=== PATIENT | female | born 1950 | race Caucasian/White ===

== ENCOUNTER 2016-11-18 05:44 | Inpatient (IN) | payer OTHER, MEDICARE ==
[2016-11-18] VITALS (14 sets, daily range): BP systolic 125–153; BP diastolic 46–98; PULSE 66–109; RESP 14–19; O2SAT 96–99
[~2016-11-18] VITALS: Ht 167.6 cm; Wt 123.8 kg
[2016-11-18] MEDS: Lactated Ringer's 1,000 ML IV SCH ×2 (05:36→07:41)
[~2016-11-18 05:44] MED LIST: DILT180C47 PO; INDA2.5T2 PO; LEVO100T6 PO; LISI10TA PO; METF500T4 PO; METO50TA3 PO
[2016-11-18] MEDS ORDERED: CeFAZolin 2 Gm/50 mL D5W Duplex Bag IV ONE (05:48)
[2016-11-18] MEDS ORDERED: Vancomycin Inj 1,000 MG in IV Premix 1 EACH IV ONE (06:00)
[2016-11-18] MEDS ORDERED: CeFAZolin Inj 2 GM in IV Premix 1 EACH IV ONE (06:00)
[2016-11-18] MEDS ORDERED: Lactated Ringer's 500 ML IV PRN (07:14)
[2016-11-18] MEDS ORDERED: Lactated Ringer's 1,000 ML IV SCH (07:14)
[2016-11-18] MEDS ORDERED: HYDROmorphone 1 mg/mL Inj IVPUSH PRN (07:15)
[2016-11-18] MEDS ORDERED: EPHEDrine Sulfate 50 mg/mL Inj IVPUSH PRN (07:15)
[2016-11-18] MEDS ORDERED: Ondansetron 2 mg/mL 2 mL Inj IVPUSH PRN ×2 (07:15→10:15)
[2016-11-18] MEDS ORDERED: hydrALAZINE 20 mg/mL Inj IVPUSH PRN (07:15)
[2016-11-18] MEDS ORDERED: Dexamethasone 4 mg/mL Inj IVPUSH PRN (07:15)
[2016-11-18] MEDS ORDERED: Labetalol 5 mg/mL 4 mL Inj IV PRN (07:15)
[2016-11-18] MEDS ORDERED: Phenylephrine 10,000 mCg/mL Inj IVPUSH PRN (07:15)
[2016-11-18] MEDS ORDERED: MetoCLOpramide 5 mg/mL 2 mL Inj IVPUSH PRN (07:15)
--- NOTE | 2016-11-18 07:16 | PCM.HPANE ---
Patient Data Date of Service: Nov 18, 2016 Surgeon Admitting Provider: Attending Provider:Shaheed Kelley DO Primary Care Physician:Arnav Kumar MD Other Provider:Jayson Humphreys Anesthesia Reason for Visit Left Hip Arthritis Ht/WT & BMI Height (Feet): 5 Height (Inches): 5.75 Weight (Kilograms): 117.6 Body Mass Index 42.00 Allergies Coded Allergies: No Known Allergies (Unverified , 11/11/16) Past Anesthesia History Anesthesia History: Denies:: Abnormal Airway, Anesthesia Reactions, Difficult Intubation, Fam Anesthesia Reaction, Fam Malignant Hypertherm, Malignant Hyperthermia Diabetes History Hx Diabetes?: No Glycemic Control: Oral Medication Current Bedside Blood Glucose: 102 MRSA MRSA: No Medications Hypertension Medication: Yes Home Meds Incl Beta Jc: Yes (Metoprolol 50mg) Date Beta Jc Taken: Nov 18, 2016 Time Beta Jc Taken: 0600 Reported Medications Metoprolol Tartrate 50 Mg [id number] Mg PO BID 30 Days Ref 0 11/11/16 Metformin 500 Mg [id number] Mg PO DAILY Ref 0 11/11/16 Lisinopril 10 Mg [id number] Mg PO DAILY 30 Days Ref 0 11/11/16 Levothyroxine 100 Mcg [id number] Mcg PO DAILY For Thyroid Replacement Ref 0 11/11/16 Indapamide 2.5 Mg Tablet2.5 Mg PO DAILY #30 TABLET 11/11/16 Diltiazem ER (Dilt XR)180 Mg Cap.er.djv411 Mg PO BID Ref 0 11/11/16 History History of ENT Problems?: No HEENT History: Denies:: Abnormal Airway Cataracts Difficult Intubation Dysphagia Glaucoma Hearing Problem Sinus Problem TMJ Denture Type: None Teeth Condition: Within Normal Limits Hx of Heart Problems?: No Cardiovascular History: Positive for:: Hypertension Denies:: AICD Abdominal Aortic Aneurism Atrial Fibrillation Cardiac Surgery Chest Pain Congestive Heart Failure Coronary Artery Disease Edema Heart Murmur Irregular Heartbeat Pacemaker Peripheral Vascular Hx of Respiratory Problem?: Yes Respiratory History: Positive for:: Pneumonia (single episode of following surgery) Denies:: Asthma COPD Emphysema Oxygen Administration Tuberculosis Use of C-PAP Machine Use of Inhalers / NEBS Hx Neurologic Problems?: No Neurological History: Denies:: Alzheimer's Disease CVA Dementia Dizziness Headaches Multiple Sclerosis Parkinson's Disease Seizures TIA Hx of GI Problems?: Yes Hx of Problems?: Yes Genitourinary History: Denies:: Kidney Stones Urinary Tract Infection Female Hx: Denies:: Currently Problems with Breasts? Skin History: Denies:: History Skin Disorders? Pressure Ulcers Hx Musculoskeletal Problems?: Yes Musculoskeletal History: Positive for:: Musculoskeletal Trauma (left hip current admission ) Osteoarthritis Denies:: Fibromyalgia Joint Replacement Myasthenia Gravis Systemic Lupus Hx of Psycho/Social Problems?: No Psycho Social History: Denies:: Anxiety Hx Depression Hx Surgeries?: Yes (hysterectomy, bud, appe, c section) Hx Any Other Health Problems?: Yes Other History: Positive for:: Cancer (cervical (hysterectomy)) Thyroid Disease History Blood Transfusions: Positive for:: Accept Blood Products? Denies:: Blood Transfusions Hx Diabetes: NoBedside Blood Glucose: 102 Hx Alcohol Use: NoHx Substance Use: NoHave You Smoked inLast 12 mo: No Stop/Bang S-Snoring: Do You Snore Loudly: No T-Tired: feel tired, fatigued: No O-Obsered: Observed not breath: No P-Blood Pressure: treated: Yes B- Body Mass Index > 35 kg/m2: Yes A- Age over 50: Yes N- Neck Large Circumference: Yes G- Gender Male: No GABRIELLA Total Score: 4 GABRIELLA Risk Assessment: High Risk, =/>3 Yes GABRIELLA Category 2: Yes Risk Assessment Category Category 1A: Patient has history of documented sleep apnea, and HAS NOT received any narcotic, sedative or anesthesia administration during this stay. Category 1B: Patient has history of documented sleep apnea, and HAS received any narcotic , sedative or anesthesia administration during this stay Category 2: Patient has SUSPECTED Obstructive Sleep Apnea, and HAS received any narcotic , sedative or anesthesia administration during this stay. Category 3: Patient has SUSPECTED Obstructive Sleep Apnea and HAS NOT received narcotic, sedative or anesthesia administration during this stay. Category 4: Outpatient in Procedural Areas with known sleep apnea or who screen positive for High Risk via the STOP/BANG questionnaire. Exam Exam Vital Signs Vital Signs Date Time Temp Pulse Resp B/P Pulse Ox O2 Delivery O2 Flow Rate FiO2 11/18/16 06:20 36.6 66 18 143/78 98 Room Air General Appearance: Alert, Oriented X3, Cooperative, No Acute Distress HEENT/AIRWAY: MP 2 Lungs: Clear to Auscultation, Normal Air Movement Heart: Exam Unremarkable, Regular Rate/Rhythm, No Murmurs/Rubs/Gallops Meds/Labs/Diagnostics Admission Meds Current Medications Lactated Ringer's 1,000 ml @ 120 mls/hr Q8H20M IV Last administered on 05:36; Start 11/18/16 at 05:00; Stop 11/18/16 at 13:19 Vancomycin/0.9 % Sod Chloride/ Premix (Vancomycin Inj/ IV Premix) 200 ml @ 100 mls/hr PREOP ONCE IV Last administered on 11/18/16 06:15; Start 11/18/16 at 06:00; Stop 11/18/16 at 07:59 Bedside Blood Glucose: 102 Plan Impression Patient chart reviewed, patient interviewed and anesthestic plan with risks, benefits, and alternatives discussed, and informed consent obtained. NPO per Anesth. Guidelines: Yes ASA Physical Status: ASA2 Mod Systemic Disease Anesthetic Plan: SAB Bene/Risks/Altern/Consents: Yes HP Complete Prior to Induction: Yes Tre Beckham MD Nov 18, 2016 07:16
[2016-11-18] MEDS ORDERED: Bupivacaine Liposome 1.3% 20 mL Inj ONE (07:23)
[2016-11-18] MEDS ORDERED: Bupivacaine-MPF 0.5% W/EPI 30 mL Inj INFILTRATE ONE (08:00)
[2016-11-18] MEDS ORDERED: 0.9% Sodium Chloride 10 mL Inj INFILTRATE ONE (08:00)
[2016-11-18] MEDS ORDERED: Bupivacaine Liposome 1.3% 20 mL Inj INFILTRATE ONE (08:00)
[2016-11-18] MEDS ORDERED: Polyethylene Glycol (PEG) 17 Gm Powder PO PRN (10:15)
[2016-11-18] MEDS ORDERED: Magnesium Hydroxide 10 mL Oral Concentration PO PRN (10:15)
[2016-11-18] MEDS ORDERED: diphenhydrAMINE 25 mg Capsule PO PRN (10:15)
[2016-11-18] MEDS: fentaNYL-PF 50 mCg/mL 2 mL Inj IVPUSH PRN ×2 (10:50→10:59)
--- NOTE | 2016-11-18 11:15 | OP ---
[address] [address] OPERATIVE REPORT PATIENT: AMERICA DACOSTA : 1950 MR#: [id number] ADMIT: 11/18/2016 JOB ID: [id number] DATE OF SURGERY: 11/18/2016 PREOPERATIVE DIAGNOSIS(ES): Left hip degenerative joint disease. POSTOPERATIVE DIAGNOSIS(ES): Left hip degenerative joint disease. PROCEDURE: Left total hip arthroplasty. SURGEON: Shaheed Kelley DO CIGARETTE MACHINE OPERATOR: Dawson Broussard PA-C INDICATIONS: The patient is a 66-year-old female with left hip severe degenerative arthritis, which has progressed to the point were she was having a very difficult time ambulating even short distances and was having to use a wheelchair. She wished to proceed with a left total hip arthroplasty. We discussed risks, benefits, and possible complications of surgery including, but not limited to injury to nerves and vessels, infection, bleeding, incomplete relief of symptoms, stiffness, need for additional procedures. We also discussed the risk of perioperative complications being higher given her increased weight. She initially did loose weight down to her goal weight, but then due to inactivity and pain she states that she increased her weight and understood that she was accepting increased risk, but felt that she needed to proceed with a total hip arthroplasty or become bedridden. library circulation assistant was required for the successful completion of the procedure. PROCEDURE IN DETAIL: The patient was brought to the operating room. She was given a preoperative antibiotic and spinal anesthetic. Placed comfortably into the lateral decubitus position. The left hip was sterilely prepped and draped. An incision was made centered over the trochanter in line with the femur. Dissection was carefully carried through subcutaneous tissue. Electrocautery was used for hemostasis. A split was then made in the iliotibial band in line with the skin incision and the Charnley retractor was then placed. A split was then made in the gluteus medius between the junction of the anterior 1/3 and posterior 2/3, and an anterior sleeve of tissue was released off of the trochanter leaving a cuff tissue for repair. A small triangular portion of capsule was then removed and the hip was then dislocated. A provisional neck cut was made about a fingerbreadth above the level of lesser trochanter and the femoral head was removed. The femur was then prepared beginning with a box osteotome. This was broached sequentially up to a size 6, which had excellent fit and fill. Next, the acetabulum was addressed and anterior and posterior acetabular retractors were placed. The pulvinar and labrum were removed. She had calcified labrum and the hip was then reamed sequentially up to a 51 for a 52 cup. The 52 cup was inserted without difficulty. Care was taken to ensure the appropriate abduction and anteversion and secured with a single superior dome screw, which had excellent purchase. I elected to place a 32 neutral liner at this point, as the patient had very little offset on her preoperative film, and I was concerned about causing excessive offset with a high offset liner. We then went back to the femur and did trials, ultimately deciding on a 32 + 9 head in order to give equal leg lengths and excellent range of motion and stability. Some posterior osteophytes were removed with the osteotome and rongeur and the size 6 Tri-Lock stem was then impacted into position with a 32 + 9 head. The hip was located had excellent range of motion and great stability. The wound was then irrigated and a mixture of 20 mg Exparel, 20 mg saline, and 20 mg Marcaine was added around the capsule and to the deep structures. The capsule was repaired with #5 Ethibond and the gluteus medius was repaired with #1 Surgilon. Some additional local was used. The vastus lateralis was then repaired with #1 suture and the iliotibial band was repaired with a running #1 and 0-Vicryl sutures. A deep fatty layer was closed with 2-0 Vicryl and then the subcu was closed with 2-0. The skin was closed with a running 3-0 V-Loc suture and Steri-Strips and a sterile dressing with silver dressing were applied. Patient tolerated the procedure well. BLOOD LOSS: 200 cc. Also 1 g TXA was used preoperatively as well as at closure. POSTOPERATIVE PROTOCOL: Have the patient weightbear to tolerance. Use walker for ambulation. Use anterolateral hip precautions. Will plan to use Lovenox for DVT prophylaxis for 21 days postoperatively and [place] 5/325 for pain.
[2016-11-18] MEDS: HYDROcodone-APAP 5-325 mg Tablet PO PRN ×2 (11:35→22:33)
[2016-11-18] MEDS: hydrOXYzine Pamoate 25 mg Capsule PO PRN ×2 (11:35→22:33)
[2016-11-18] MEDS: Ketorolac 15 mg/mL Inj IVPUSH PRN ×2 (11:40→20:11)
--- NOTE | 2016-11-18 12:21 | DRSVH ---
PROCEDURE: X-RAY PELVIS W/LAT HIP (LT) ([id number]) INDICATIONS: post op TECHNIQUE: AP pelvis with lateral view(s) of the left hip(s). COMPARISON: [facility], CR, XR PELVIS W LATERAL HIP LT, 09/21/2015, 11:21. [facility], CR, XR PELVIS W LATERAL HIP LT, 06/26/2016, 9:42. FINDINGS: Bones: Postoperative changes related to a total left hip arthroplasty are present. The metallic pros thetic components are properly seated without periprosthetic fracture evident. Advanced degenerative changes of the right hip are incidentally noted. There also are degenerative changes of the pubis s ymphysis and sacroiliac joints. Soft tissues: The visualized bowel gas pattern is normal. No suspicious soft tissue calcifications. IMPRESSION: Total left hip arthroplasty. No periprosthetic fracture is evident. Dictated by: Estuardo Pino M.D. on 11/18/2016 at 11:12 Approved by: Estuardo Pino M.D. on 11/18/2016 at 11:19
[2016-11-18] MEDS ORDERED: Ketamine 10 mg/mL 20 mL Inj ONE (12:54)
[2016-11-18] MEDS ORDERED: Bupivacaine 0.5% 50 mL Inj ONE (12:54)
[2016-11-18] MEDS ORDERED: Propofol 10,000 mCg/mL 20 mL Inj ONE (12:54)
[2016-11-18] MEDS ORDERED: Glycopyrrolate 0.2 MG/ML 1mL Inj ONE (12:54)
[2016-11-18] MEDS: HYDROmorphone 1 mg/mL Inj IVPUSH PRN ×2 (13:08→20:14)
[2016-11-18] MEDS: 0.9% Sodium Chloride 1,000 ML IV SCH ×2 (13:09→20:12)
[2016-11-18 13:12] LABS: APPEARANCE,URINE CLEAR (CLEAR,HAZY); COLOR,URINE STRAW (YELLOW); OCCULT BLOOD,URINE NEGATIVE (NEGATIVE); PH,URINE 7.5 (5.0-8.0); UROBILINOGEN,URINE NORMAL (NORMAL)
[2016-11-18] MEDS: CeFAZolin Inj 2 GM in IV Premix 1 EACH IV SCH ×2 (15:08→23:45)
--- NOTE | 2016-11-18 16:17 | NUR ---
Post op note- Received patient via bed to OSC from PACU. Awake, drowsy, and complaining of hip pain. Pain med given with relief and patient able to doze off. Continuous oximetry on. Left hip dressing dry and intact. Ortho checks stable. Stone cath. draining ralf urine. Oriented to room, call light, etc. at bedside.
[2016-11-18] MEDS: Sodium Chloride LOK Flush 10 mL Syringe IV SCH ×2 (17:06→23:50)
--- NOTE | 2016-11-18 19:56 | PCM.ANEP1 ---
Post Anesthesia PACU Phase 1 Assessment Date of Service: Nov 18, 2016 Vital Signs Vital Signs Date Time Temp Pulse Resp B/P Pulse Ox O2 Delivery O2 Flow Rate FiO2 11/18/16 16:58 36.8 84 19 144/71 98 Room Air 11/18/16 16:25 77 16 98 Room Air 11/18/16 13:00 Supplement Oxygen 11/18/16 12:28 36.4 80 18 142/83 99 Nasal Cannula 3.00 11/18/16 12:26 77 15 142/58 97 Nasal Cannula 2 11/18/16 12:00 75 16 142/77 99 Nasal Cannula 2 Anesthetic Administered: GA Level of Alertness: Awake, talking GAMBOA's with Equal Strength: No (left hip surgery) Pain: No Nausea or Vomiting: No CV Function & Hydration Stable: Yes Airway Device: Lungs: Clear to Auscultation, Normal Air Movement Dermatome Level: Full Sensation PACU Phase 2 Assessment Complications: No Follow up Care: No Patient Instructions Provided: N/A Tre Beckham MD Nov 18, 2016 19:56
[2016-11-18] MEDS: Senna-Docusate 8.6-50 mg Tablet PO SCH (22:33)
[2016-11-18] MEDS: Diltiazem CD 180 mg ER24 Capsule PO SCH (22:33)
--- NOTE | 2016-11-19 01:03 | NUR ---
Pain Pain managed with Dilauded and toradol or [place] and vistaril, pt was in recilner at start of shift and ambulated to bed. Pt also requests to dangle at bedside, otherwise wedge used to keep legs stablilzed. IV saline locked, abx infused without issue. Pt is alert and oriented, no SOB or chest pain, no numbness or tingling to L lower extremity. Care continues
[2016-11-19] MEDS: hydrOXYzine Pamoate 25 mg Capsule PO PRN ×5 (03:34→22:55)
[2016-11-19] MEDS: HYDROcodone-APAP 5-325 mg Tablet PO PRN ×5 (03:35→22:55)
[2016-11-19 05:33] VITALS: BP 139/76; PULSE 82; RESP 17; O2SAT 97
[2016-11-19 05:51] LABS: BASOPHILS % (AUTO) 0.2 % (0-3); EOSINOPHILS % (AUTO) 1.5 % (0-5); MONOCYTES % (AUTO) 13.9 % (4-12); Mean Corpuscular Hemoglobin 28.6 pg (27.0-35.0); Mean Corpuscular Volume 84.9 fL (81-100); Platelet Count 139 bil/L (150-400)
[2016-11-19] MEDS: 0.9% Sodium Chloride 1,000 ML IV SCH ×2 (06:12→16:12)
--- NOTE | 2016-11-19 08:30 | PCM.PNORTH ---
Subjective Date of Service: Nov 19, 2016 Visit Information: Reason for Visit Left Hip Arthritis Surgery/Surgery Date LEFT TOTAL HIP 11/18/16 Post-Op Day # 1 Date of Admission: Nov 18, 2016 at 12:53 Hospital Day # Subjective Patient reports she had some nausea last night when the pain was bad. This morning she is hypotensive. She is sitting up in a chair but does not feel weak or dizzy. Patient states she has difficulty getting up to the bathroom in a timely manner and would like to have the Stone kept in. Postop General: No Shortness of Breath, No Chest Pain, Good Appetite Pain Management: PO, IV Push Objective Exam Objective Patient is seen sitting up in a chair Vital Signs and I/O Vital Sign - Last Date Time Temp Pulse Resp B/P Pulse Ox O2 Delivery O2 Flow Rate FiO2 11/19/16 05:33 37.1 82 17 139/76 97 Room Air 11/18/16 12:28 3.00 Intake and Output 11/18/16 11/18/16 11/19/16 Cumulative From/Thru 15:00 23:00 07:00 11/11/16 11:58 - 11/19/16 05:33 Intake Total 1160 ml 983 ml 300 ml 2443 ml Output Total 600 ml 200 ml 950 ml 1750 ml Balance 560 ml 783 ml -650 ml 693 ml Intake Oral 636 ml 300 ml 936 ml IV Total 1160 ml 347 ml 1507 ml Output Urine Total 400 ml 200 ml 950 ml 1550 ml Estimated Blood Loss 200 ml 200 ml # Bowel Movements 0 0 Lab & Micro Results Laboratory Tests Test 11/18/16 10:54 11/19/16 05:13 Urine Color Straw (YELLOW) Urine Appearance Clear (CLEAR,HAZY) Urine pH 7.5 (5.0-8.0) Urine Specific [place] 1.010 (1.003-1.035) Urine Protein Negativemg/dL (NEG,TRACE) Urine Glucose (UA) Negativemg/dL (NEGATIVE) Urine Ketones Negativemg/dL (NEGATIVE) Urine Occult Blood Negative (NEGATIVE) Urine Nitrite Negative (NEGATIVE) Urine Bilirubin Negative (NEGATIVE) Urine Urobilinogen Normalmg/dL (NORMAL) Urine Leukocyte Esterase Negative (NEGATIVE) Urine RBC 0-2/hpf (0-2) Urine WBC 0-5/hpf (0-5) Urine Epithelial Cells Occasional/hpf (NONE-MOD) Urine Crystals None seen (NONE SEEN) Urine Bacteria None/hpf (NONE-FEW) Urine Hyaline Casts None/lpf (NONE) Urine Granular Casts None seen (NONE SEEN) Urine Waxy Casts None seen (NONE SEEN) Urine Red Blood Cell Casts None seen (NONE SEEN) Urine White Blood Cell Casts None seen (NONE SEEN) Urine Mucus None seen (None Seen) Urine Trichomonas None seen (NONE SEEN) Urine Yeast None (NONE SEEN) Urinalysis Comment None Urine Culture Reflexed Not indicated White Blood Count 9.6th/mm3 (3.8-10.1) Red Blood Count 3.64mil/mm3 (3.90-5.20) Hemoglobin 10.4g/dL (12.0-15.6) Hematocrit 30.9% (35.0-46.0) Mean Corpuscular Volume 84.9fL (81-100) Mean Corpuscular Hemoglobin 28.6pg (27.0-35.0) Mean Corpuscular Hemoglobin Concent 33.7% (32.0-37.0) Red Cell Distribution Width 13.9% (12.3-15.4) Platelet Count 139bil/L (150-400) Neutrophils (%) (Auto) 71.0% (40-74) Lymphocytes (%) (Auto) 13.1% (14-46) Monocytes (%) (Auto) 13.9% (4-12) Eosinophils (%) (Auto) 1.5% (0-5) Basophils (%) (Auto) 0.2% (0-3) Sodium Level 131mEq/L (134-144) Potassium Level 3.4mEq/L (3.5-5.2) Chloride Level 94mEq/L (97-108) Carbon Dioxide Level 23mmol/L (18-29) Blood Urea Nitrogen 14mg/dL (8-27) Creatinine 0.62mg/dL (0.57-1.00) Estimat Glomerular Filtration Rate 137mL/min (>59) Glucose Level 127mg/dL (60-99) Calcium Level 8.2mg/dL (8.5-10.1) Result Diagram: 11/19/16 0513 11/19/16 0513 General Appearance: Alert, Oriented X3, Cooperative, No Acute Distress Extremities: Distal Pulses Palpable, No Compartment Syndrom Noted Postop Sensory Motor: Distal Motor Intact, Distal Sensation Intact, NVI Distally SURGICAL WOUND : Incision General Appearance: No Direct Observation Dressing & Drainage Status: Intact (clean and dry) Activity: Activity per PT Catheters: Urethral 2 Way Stone Assessment & Plan Impression POD #1 left total hip arthroplasty Problems: Plan Weightbearing: Weightbearing as tolerated with walker DVT prophylaxis: Lovenox 40 mg subcutaneous 3 weeks followed by aspirin 325 mg twice a day 3 weeks Physical therapy for transfers, progressive ambulation, therapeutic exercise 500 mL IV fluid bolus is ordered. Hold blood pressure medication until blood pressure improves. The Stone catheter in until later today and then DC in pm Wound care: PA will change dressing on postop day 2 Discharge plan: Discharge home in 1-2 days. Follow-up plan: In 2 weeks at [facility] with PA for wound check and at [address] Kelley with x-rays Pain Management: Dilaudid, Toradol, [place], Vistaril VTE Prophylaxis: Sub-Q Enoxaparin, SCDs Resuscitation Status: CPR: Attempt Resuscitation [place] gord[place] PA-C Nov 19, 2016 08:30
[2016-11-19 09:06] VITALS: BP 109/59; PULSE 97; RESP 18; O2SAT 99
--- NOTE | 2016-11-19 09:18 | NUR ---
Evaluation completed. Please go to "Notes" then click on "Assessments and Notes" (bottom left corner of screen). Then select appropriate discipline tab on top of screen.
[2016-11-19] MEDS: Senna-Docusate 8.6-50 mg Tablet PO SCH ×2 (09:26→21:31)
[2016-11-19] MEDS: Sodium Chloride LOK Flush 10 mL Syringe IV SCH ×3 (10:39→21:31)
[2016-11-19 11:56] VITALS: BP 126/72; PULSE 85; RESP 18; O2SAT 99
[2016-11-19] MEDS: Diltiazem CD 180 mg ER24 Capsule PO SCH ×2 (14:11→21:31)
--- NOTE | 2016-11-19 15:27 | NUR ---
Social Work- Initial Assessment/ Readiness for Discharge/Multidisciplinary Rounds Data: See Initial Assessment and Advance Directive Intervention for additional information. Pt discussed in rounds. Pt is POD 1. Pt is not ready for discharge at this time, likely tomorrow or Thursday. Ortho anticipates pt to discharge home as she is mobilizing well already. No CM orders have been placed at this time. Pt is a 66 year old admitted 11/18/16 for left hip arthritis per H&P. Pt's insurance is [facility] and [employer]. Pt's PCP is Arnav Kumar MD. Pt's readmit risk score is not listed at this time. SW met with pt at bedside regarding discharge plan, SW role explained. Pt alert and oriented x3. Pt's capacity for self-care assessed. Pt's designated contact lens technician is her Gomez Pastor, . Pt resides in [place] at home with her and disabled daughter. Pt is her daughters caregiver. Pt is independent with ADLs and self-care. Pt uses no DME at baseline but has a cane, wheelchair, and walker available for use. Pt drives. Pt has no history with HH services. Pt has no history with SNF services. Pt has no DPOA on file and declined information at bedside. SW provided Discharge planning Checklist and requested that pt contact DIRECTOR OF PROGRAMMING if needs identified. SW provided phone number and plan on whiteboard. Pt agreeable. Pt will likely discharge home with her to transport via POV. SW will continue to follow. Assessment: Pt who is independent at baseline. Plan: Pt likely to discharge home with her to transport via POV. No CM orders have been placed at this time. SW will continue to follow. MICHELLE Mabry Addendum: 11/19/16 at 1530 by TONIE TEIXEIRA Amended: Links added.
[2016-11-19 20:00] VITALS: BP 105/63; PULSE 67; RESP 17; O2SAT 98
--- NOTE | 2016-11-20 01:18 | NUR ---
Pain/Activity IV infusing NS at start of shift, per emar 500 ml bolus had been requested. Saline locked after that liter was complete, pt has good PO intake and encouraged to consume beef broth as well to boost NA. Stone DCd in afternoon and pt is voiding independently. SBA with walker to restroom. Pt comfortable sleeping in bed or recliner alternating. Evening Metroprolol held due to BP 105/63. Denies SOB or chest pain, care continues
[2016-11-20] MEDS: 0.9% Sodium Chloride 1,000 ML IV SCH ×3 (02:12→21:42)
[2016-11-20] MEDS: HYDROcodone-APAP 5-325 mg Tablet PO PRN ×5 (03:20→22:41)
[2016-11-20] MEDS: hydrOXYzine Pamoate 25 mg Capsule PO PRN ×4 (03:20→18:42)
[2016-11-20 05:28] LABS: BASOPHILS % (AUTO) 0.2 % (0-3); EOSINOPHILS % (AUTO) 2.5 % (0-5); MONOCYTES % (AUTO) 13.6 % (4-12); Mean Corpuscular Hemoglobin 28.6 pg (27.0-35.0); Mean Corpuscular Volume 85.8 fL (81-100); NEUTROPHILS % (AUTO) 64.4 % (40-74); Platelet Count 137 bil/L (150-400)
[2016-11-20 05:54] VITALS: BP 121/66; PULSE 82; RESP 17; O2SAT 97
[2016-11-20] MEDS: Senna-Docusate 8.6-50 mg Tablet PO SCH ×2 (09:19→20:25)
[2016-11-20] MEDS: Diltiazem CD 180 mg ER24 Capsule PO SCH ×2 (09:19→20:25)
[2016-11-20 09:20] VITALS: BP 136/60; PULSE 94; O2SAT 96
[2016-11-20] MEDS: Sodium Chloride LOK Flush 10 mL Syringe IV SCH ×3 (09:34→23:33)
--- NOTE | 2016-11-20 09:42 | PCM.PNORTH ---
Subjective Date of Service: Nov 20, 2016 Visit Information: Reason for Visit Left Hip Arthritis Surgery/Surgery Date LEFT TOTAL HIP 11/18/16 Post-Op Day # Date of Admission: Nov 18, 2016 at 12:53 Hospital Day # Subjective Status post day #2 left total hip arthroplasty. Patient states her pain is well controlled, she is eating well and beginning to work a little more with physical therapy but still moving quite slowly. Postop General: No Shortness of Breath, No Chest Pain, Good Appetite Pain Management: PO, IV Push Objective Exam Objective Patient is alert and oriented 3. Answering questions appropriately. Patient is sitting up in the bed and not in acute distress today. Dressing is clean dry and intact. Upon dressing change, no discharge from incision, no erythema. Dry. Calf is soft and nontender. Sensation and pulses intact, patient able to wiggle toes. Vital Signs and I/O Vital Sign - Last Date Time Temp Pulse Resp B/P Pulse Ox O2 Delivery O2 Flow Rate FiO2 11/20/16 05:54 36.9 82 17 121/66 97 Room Air 11/18/16 12:28 3.00 Intake and Output 11/19/16 11/19/16 11/20/16 Cumulative From/Thru 15:00 23:00 07:00 11/11/16 11:58 - 11/20/16 06:41 Intake Total 850 ml 1477 ml 4770 ml Output Total 2050 ml 1250 ml 5050 ml Balance -1200 ml 227 ml -280 ml Intake Oral 850 ml 977 ml 2763 ml IV Total 500 ml 2007 ml Output Urine Total 2050 ml 1250 ml 4850 ml Estimated Blood Loss 200 ml # Bowel Movements 0 0 0 Lab & Micro Results Laboratory Tests Test 11/20/16 04:58 White Blood Count 9.5th/mm3 (3.8-10.1) Red Blood Count 3.46mil/mm3 (3.90-5.20) Hemoglobin 9.9g/dL (12.0-15.6) Hematocrit 29.7% (35.0-46.0) Mean Corpuscular Volume 85.8fL (81-100) Mean Corpuscular Hemoglobin 28.6pg (27.0-35.0) Mean Corpuscular Hemoglobin Concent 33.3% (32.0-37.0) Red Cell Distribution Width 14.1% (12.3-15.4) Platelet Count 137bil/L (150-400) Neutrophils (%) (Auto) 64.4% (40-74) Lymphocytes (%) (Auto) 18.9% (14-46) Monocytes (%) (Auto) 13.6% (4-12) Eosinophils (%) (Auto) 2.5% (0-5) Basophils (%) (Auto) 0.2% (0-3) Sodium Level 133mEq/L (134-144) Potassium Level 3.3mEq/L (3.5-5.2) Chloride Level 95mEq/L (97-108) Carbon Dioxide Level 24mmol/L (18-29) Blood Urea Nitrogen 12mg/dL (8-27) Creatinine 0.57mg/dL (0.57-1.00) Estimat Glomerular Filtration Rate 151mL/min (>59) Glucose Level 133mg/dL (60-99) Calcium Level 8.5mg/dL (8.5-10.1) Result Diagram: 11/20/168 11/20/16457 SURGICAL WOUND : Incision General Appearance: No Direct Observation Dressing & Drainage Status: Intact (clean and dry) Activity: Activity per PT Catheters: Urethral 2 Way Stone Assessment & Plan Impression Status post a #2 left total hip arthroplasty. Patient doing well, not cleared from physical therapy for discharge to home. Problems: Plan Weightbearing: Weightbearing as tolerated with walker DVT prophylaxis: Lovenox 40 mg subcutaneous 3 weeks followed by aspirin 325 mg twice a day 3 weeks Physical therapy for transfers, progressive ambulation, therapeutic exercise Dressing changed today. Discharge plan: Discharge home tomorrow, patient has significant help and would like to go home with her spouse. Biggest concern will be to accomplish transfer into home vehicle as they drive and SUV and she believes this may be difficult. Follow-up plan: In 2 weeks at [facility] with DUSTIN for wound check and at [address] Kelley with x-rays VTE Prophylaxis: Sub-Q Enoxaparin, SCDs Resuscitation Status: CPR: Attempt Resuscitation Dawson Broussard PA-C Nov 20, 2016 09:42
[2016-11-20 12:50] VITALS: BP 117/67; PULSE 71; RESP 18; O2SAT 98
--- NOTE | 2016-11-20 13:49 | NUR ---
Social Work- Readiness for Discharge/Multidisciplinary Rounds Data: EMR reviewed. Pt is on day 2 of hospitalization for hip replacement. Pt discussed with outside solar sales consultant in rounds. Pt is not medically stable for d/c, likely tomorrow POD 3. PT is anticipating HHPT at this time. No CM orders for HHPT have been placed at this time. Pt's spouse is supportive and pt is very motivated to return home. Pt to discharge home with spouse to transport via POV or private pay wheelchair van, likely tomorrow. R/O HHPT. Assessment: Pt who will return home at discharge Plan: Pt's spouse is supportive and pt is very motivated to return home. Pt to discharge home with spouse to transport via POV or private pay wheelchair van, likely tomorrow. R/O HHPT. MICHELLE Mabry
--- NOTE | 2016-11-20 18:25 | NUR ---
No IV access Pts iv became occluded this afternoon. Has been tolerating PO intake and meds. BP has been stable. DUSTIN called, and she says it is ok to have no IV access at this time.
[2016-11-20 20:19] VITALS: BP 143/66; PULSE 82; RESP 18; O2SAT 98
[2016-11-21] MEDS: HYDROcodone-APAP 5-325 mg Tablet PO PRN ×2 (03:03→09:22)
--- NOTE | 2016-11-21 03:08 | NUR ---
Pain/Activity Patient has been receiving [place] 5/325 two tabs PO for pain management. States tolerable pain level is a 6/10. Pain meds effective, rating pain around 4-5/10. Up with SBA to BR multiple times this shift. Denies lightheadedness or dizziness.
[2016-11-21 04:57] VITALS: BP 134/72; PULSE 79; RESP 18; O2SAT 97
--- NOTE | 2016-11-21 07:22 | PCM.PNORTH ---
Subjective Date of Service: Nov 21, 2016 Visit Information: Reason for Visit Left Hip Arthritis Surgery/Surgery Date LEFT TOTAL HIP 11/18/16 Post-Op Day # 3 Date of Admission: Nov 18, 2016 at 12:53 Hospital Day # Subjective Patient states she is feeling good this morning. She has been ambulating well and states she feels strong. Patient states she cannot tolerate compression stockings and will not wrap her legs with nanci wraps. I told her this is our recommendation and she understand but declined. Postop General: No Complaints, No Shortness of Breath, No Chest Pain, Good Appetite Pain Management: PO, IV Push Objective Exam Objective Patient sitting up in chair Vital Signs and I/O Vital Sign - Last Date Time Temp Pulse Resp B/P Pulse Ox O2 Delivery O2 Flow Rate FiO2 11/21/16 04:57 36.8 79 18 134/72 97 Room Air 11/18/16 12:28 3.00 Intake and Output 11/20/16 11/20/16 11/21/16 Cumulative From/Thru 15:00 23:00 07:00 11/11/16 11:58 - 11/21/16 04:57 Intake Total 1160 ml 2000 ml 7930 ml Output Total 1200 ml 950 ml 7200 ml Balance -40 ml 1050 ml 730 ml Intake Oral 1160 ml 2000 ml 5923 ml IV Total 0 ml 2007 ml Output Urine Total 1200 ml 950 ml 7000 ml Estimated Blood Loss 200 ml # Bowel Movements 0 0 0 Result Diagram: 11/20/16 0458 11/20/16 0458 General Appearance: Alert, Oriented X3, Cooperative, No Acute Distress Extremities: Distal Pulses Palpable, No Compartment Syndrom Noted Postop Sensory Motor: Distal Motor Intact, Movement in Toes, Distal Sensation Intact, NVI Distally SURGICAL WOUND : Wound Location/Description c/d/i Incision General Appearance: No Direct Observation Dressing & Drainage Status: Intact (clean and dry) Activity: Activity per PT Assessment & Plan Impression Status post a #3 left total hip arthroplasty. Patient doing well, cleared from physical therapy for discharge to home. Problems: Plan Weightbearing: Weightbearing as tolerated with walker DVT prophylaxis: Lovenox 40 mg subcutaneous 3 weeks followed by aspirin 325 mg twice a day 3 weeks Physical therapy for transfers, progressive ambulation, therapeutic exercise Patient states she cannot tolerate compression stockings and will not wrap her legs with nanci wraps. I told her this is our recommendation and she understand but declined. Discharge plan: Discharge home tomorrow, patient has significant help and would like to go home with her spouse. Biggest concern will be to accomplish transfer into home vehicle as they drive and SUV and she believes this may be difficult. Follow-up plan: In 2 weeks at [facility] with DUSTIN for wound check and at [address] Kelley with x-rays VTE Prophylaxis: Sub-Q Enoxaparin, SCDs Resuscitation Status: CPR: Attempt Resuscitation Abbey Lo PA-C Nov 21, 2016 07:22
--- NOTE | 2016-11-21 07:26 | PCM.DIORTH ---
Ortho Discharge Instruction Date of Service: Nov 21, 2016 Dates of Hospitalization Date of Hospital Admission Nov 18, 2016 at 12:53 Providers Admitting Physician: Shaheed Kelley DO Primary Care Physician: Arnav Kumar MD Attending Physician: Shaheed Kelley DO Activity Discharge Activity-General: Be up and about, Ice incision 3-5 time/day for 20min Left Lower Extremity: Weight Bearing as tolerated Discharge Assist Device: Front Wheeled Walker Dressing and Incisional Care Discharge Dressing Care: Allow Steri Stripes to fall off Discharge Hygiene: May shower (if incision is dry and not draining), DO NOT soak incision under water, NO bathtub, hot tub or whirlpool Additional Instructions Discharge Instructions Weightbearing: Weightbearing as tolerated with walker DVT prophylaxis: Lovenox 40 mg subcutaneous 3 weeks followed by aspirin 325 mg twice a day 3 weeks Take your pain medication as prescribed. Ice your incision frequently to reduce pain and swelling. Patient states she cannot tolerate compression stockings and will not wrap her legs with nanci wraps. I told her this is our recommendation and she understand but declined. Follow-up plan: In 2 weeks at [facility] with DUSTIN for wound check and at [address] Kelley with x-rays Abbey Lo PA-C Nov 21, 2016 07:26
[2016-11-21] MEDS ORDERED: ENOX40DI8 SUBQ (07:27)
[2016-11-21] MEDS ORDERED: HYDR-4003 PO (07:27)
[2016-11-21] MEDS ORDERED: HYDR-3797 PO (07:27)
[2016-11-21] MEDS: 0.9% Sodium Chloride 1,000 ML IV SCH (08:12)
[2016-11-21] MEDS: Sodium Chloride LOK Flush 10 mL Syringe IV SCH (08:30)
--- NOTE | 2016-11-21 09:01 | NUR ---
Social Work: Readiness for Discharge D: EMR reviewed. Pt is on day 3 of hospitalization for hip replacement. SW received discharge orders for pt. Per PT, pt cleared to go home with FWW and follow-up with outpt PT - HH not recommended at this time. Pt has FWW at home. Pt's spouse is supportive and pt is very motivated to return home. Pt to discharge home with spouse to transport via POV or private pay wheelchair van, likely today. SW to confirm pt's transport home. A: Pt who will return home at discharge with outpt PT. P: Pt's spouse is supportive and pt is very motivated to return home. Pt to discharge home with spouse to transport via POV or private pay wheelchair van, SW to confirm transport. PT recommends outpt PT at this time. SW will continue to follow. MICHELLE Dowling Addendum: 11/21/16 at 1246 by LINDSEY TALLEY Pt to transport home via POV with spouse.
[2016-11-21] MEDS: Diltiazem CD 180 mg ER24 Capsule PO SCH (09:20)
[2016-11-21] MEDS: Senna-Docusate 8.6-50 mg Tablet PO SCH (09:20)
[2016-11-21] MEDS: hydrOXYzine Pamoate 25 mg Capsule PO PRN (09:21)
[2016-11-21 09:30] VITALS: BP 134/55; PULSE 83; O2SAT 93
--- NOTE | 2016-11-21 12:57 | NUR ---
Discharge Pt discharged to home at 1255 in stable condition accompanied by spouse and son. IV discontinued yesterday. All prescriptions instructions and belongings with patient. No questions or concerns at this time.
--- NOTE | 2016-11-24 11:49 | PCM.DC.ORT ---
Discharge Summary Date of Service: Nov 24, 2016 Date of Hospital Admission: Nov 18, 2016 at 12:53 Date of Surgery: Nov 18, 2016 Date of Discharge: Nov 21, 2016 Reason for Hospitalization: Left hip osteoarthritis Procedures Performed: Left total hip arthroplasty Hospital Course: Patient underwent the above procedure on 11/18/16. IV antibiotics including ancef and vancomycin were given perioperatively. Patient tolerated the procedure and was transferred to the floor in a stable condition. Hospital course was uncomplicated. Discharge Instructions: Weightbearing: Weightbearing as tolerated with walker DVT prophylaxis: Lovenox 40 mg subcutaneous 3 weeks followed by aspirin 325 mg twice a day 3 weeks Take your pain medication as prescribed. Ice your incision frequently to reduce pain and swelling. Patient states she cannot tolerate compression stockings and will not wrap her legs with nanci wraps. I told her this is our recommendation and she understand but declined. Follow-up plan: In 2 weeks at [facility] with DUSTIN for wound check and at [address] Kelley with x-rays Diltiazem ER (Dilt XR) 180 Mg Cap.er.deg 180 MG PO BID Enoxaparin Sodium (Enoxaparin Sodium) 40 Mg/0.4 Ml Syringe 40 MG SUBQ Q24 Hydrocodone-Acetaminophen 5-325 mg (Hydrocodone-Acetaminophen 5-325 mg) 1 Each Tablet 1-2 TABLET PO Q6H PRN PRN For Moderate Pain Hydroxyzine Pamoate (HydrOXYzine Pamoate) 25 Mg Capsule 25 MG PO Q4H PRN PRN For Spasm and/or Restlessness Indapamide (Indapamide) 2.5 Mg Tablet 2.5 MG PO DAILY Levothyroxine (Levothyroxine) 100 Mcg Tablet 100 MCG PO DAILY Lisinopril (Lisinopril) 10 Mg Tablet 10 MG PO DAILY Metformin (Metformin) 500 Mg Tablet 500 MG PO DAILY Metoprolol Tartrate (Metoprolol Tartrate) 50 Mg Tablet 50 MG PO BID Abbey Lo PA-C Nov 24, 2016 11:49
== END 2016-11-21 12:55 | disposition home or self-care (01) | DRG 470 ==
LOC: SAS 05:44 → OSC 12:53
PROVIDERS: ADMIT Orthopaedic Surgery; ATTEND Orthopaedic Surgery
PROC: 0SRB04A Replacement of Left Hip Joint with Ceramic on Polyethylene Synthetic Substitute, Uncemented, Open Approach (ICD-10-PCS; principal; 2016-11-18 07:30)
DX: M16.12 Unilateral primary osteoarthritis, left hip (principal); I10 Essential (primary) hypertension